=== PATIENT | male | born 1960 | race Caucasian/White ===

== ENCOUNTER → 2019-01-20 | Outpatient (CLI) | payer OTHER, MEDICARE ==
[~2019-01-20] MED LIST: AUGMENTIN XR 11 EACH; BENTYL10 MG PO; CEFDINIR300 MG PO; COLACE 100 MG100 MG OR; CREON; CREON DR 24,001 EACH PO; CREON DR 3,0001 EACH PO; CREON PO; DILAUDID 2 MG TA2 MG PO; DILAUDID2 M1 PO; FENTANYL PA12 MCG/HR TP; FENTANYL PA25 MCG/HR; FENTANYL PA50 MCG/HR TP; FISH OIL 1,0001 EAC5 PO; FISH OIL 1,2001 EAC4; FISH OIL 1,2001 EAC4 PO; INDERAL LA160 MG PO; LEVOTHYROXIN0.088 MG PO; LISINOPRIL40 MG PO; LORTAB 5 MG/5001 TAB; MEDROLDOSEPACK; MEDROLDOSEPACK PO; MIRALAX255 GM; MULTIVITAMINS PO; NASONEX17 GM; NOHOMEMEDICATIONS; NORCO 5-325 TA1 EACH PO; OMEPRAZOLE 20 M20 M1 PO; OMEPRAZOLE20 M2 PO; ONDANSETRON HCL4 M2 PO; PANCREASE; PERCOCET 5-3251 EACH PO; PHENERGAN 25 MG25 M1 PO; PHENERGAN 25 MG25 MG PO; PREDNISONE 20 M20 MG PO; PRILOSEC 20 MG20 MG; PROMETHAZINE HC25 M1 PO; PROTONIX40 M2 PO; TOPAMAX 100 MG100 MG PO; TRAMADOL 50 MG50 MG PO; TRANSDERM-SCO1 PATC1 TOP; VERAMYST10 GM; VICODIN 5-5001 EACH OR; VICODIN 5-5001 EACH PO; ZOFRAN 4 MG ORAL4 MG PO; ZOFRAN4 MG PO
== END ==
LOC: M.PUL 09:49
DX: R06.09 Other forms of dyspnea (principal)

== ENCOUNTER → 2019-01-22 | Outpatient (CLI) | payer OTHER, MEDICARE ==
--- NOTE | 2019-01-23 12:13 | PF ---
[address] [address] PULMONARY FUNCTION REPORT Name: ANNYPAT JIMENA Room: [facility].#: [id number] Admission: 01/22/19 Attend Phys: Jaye Chirinos MD Discharge: Date of : 62 Report #: [id number] THIS REPORT FOR: //name// CC: Jaye Chirinos PULMONARY FUNCTION TEST FINDINGS: Spirogram showed normal forced vital capacity and normal FEV1, with normal FEV1-to-FVC ratio. Normal mid flow, consistent with normal spirogram. There was no significant reversibility with bronchodilators. The patient was able to exhale for 7-8 seconds. Flow volume loops looked normal as well. Lung volume on plethysmography was normal. A diffusion capacity was normal. ASSESSMENT AND PLAN: Normal pulmonary function test. Clinical correlation is indicated. <ELECTRONICALLY SIGNED> By: Carlos Bowers MD 01/23/19 1213 [id number] Bowers MD /nt
== END ==
LOC: M.ULTRA 08:00
DX: K86.1 Other chronic pancreatitis (principal); Z90.49 Acquired absence of other specified parts of digestive tract